=== PATIENT | female | born 1980 ===

== ENCOUNTER 2016-09-28 00:14 | Emergency (ER) | payer SELFPAY ==
[~2016-09-28] VITALS: Ht 157.5 cm; Wt 53.5 kg
[2016-09-28 00:30] VITALS: BP 101/65
--- NOTE | 2016-09-28 00:37 | Emergency Room Report ---
History of Present Illness General Chief Complaint: Abdominal Pain Source: Patient Present Illness HPI This is a 36-year-old female with no past history. She presents with chief complaint of abdominal pain. No diarrhea. [place] cold. Has sore throat. One episode of vomiting today. Hasn't eaten much the last 3 days. Pain is 7/10. Cramping and sharp. Diffuse in nature. Allergies: Coded Allergies: No Known Allergies (Unverified , 09/28/16) Patient History Past Medical History: none, see triage record, old chart reviewed Past Surgical History: none Pertinent Family History: none Social History: Denies: smoking Last Menstrual Period: Aug Now: No Immunizations: other Reviewed Nursing Documentation: PMH: Agreed, PSxH: Agreed Nursing Documentation-PMH Past Medical History: No Stated History Review of Systems Constitutional: Reports: sweats, weakness Eye: Denies: blurred vision, eye pain ENT: Denies: ear pain, nose congestion, throat swelling Respiratory: Denies: cough, shortness of breath Cardiovascular: Denies: chest pain, palpitations Gastrointestinal: Reports: abdominal pain, nausea, vomiting, Denies: diarrhea Musculoskeletal: Denies: back pain, joint pain Skin: Denies: rash Neurological: Denies: headache, numbness Endocrine: Denies: increased thirst, increased urine Hematologic/Lymphatic: Denies: easy bruising All Other Systems: negative except mentioned in HPI Physical Exam Vital Signs Date Time Temp Pulse Resp B/P Pulse Ox O2 Delivery O2 Flow Rate FiO2 09/28/16 00:17 99.0 111 20 98/62 97 Room Air vitals with tachycardia Sp02 EP Interpretation: reviewed, normal General Appearance: well appearing, no apparent distress, alert Head: normocephalic, atraumatic Eyes: bilateral eye EOMI, bilateral eye PERRL ENT: hearing grossly normal, normal pharynx Neck: full range of motion, supple, no meningismus Respiratory: chest non-tender, lungs clear, normal breath sounds Cardiovascular #1: regular rate, rhythm, no murmur Gastrointestinal: normal bowel sounds, no mass, no organomegaly, no bruit, non- distended, tenderness - Right flank Musculoskeletal: back normal, gait/station normal, normal range of motion Neurologic: alert, oriented x3 Psychiatric: mood/affect normal Skin: warm/dry Medical Decision Making Diagnostic Impression: Primary Impression: Abdominal pain Qualified Codes: R10.84 - Generalized abdominal pain Additional Impression: UTI (urinary tract infection) Qualified Codes: N30.00 - Acute cystitis without hematuria ER Course Patient presents with abdominal pain. On recheck she felt better now. I order a CT scan but she does not want to wait around for her. She may have her urine tract infection. We'll put on antibiotics. Labs unremarkable. Again patient felt better doesn't want to stay. Lab Results Impression labs unremarkable Last Vital Signs Date Time Temp Pulse Resp B/P Pulse Ox O2 Delivery O2 Flow Rate FiO2 09/28/16 00:17 99.0 111 20 98/62 97 Room Air Status: improved Disposition: HOME, SELF-CARE Condition: Stable Scripts Nitrofurantoin Monohyd/M-Cryst (Nitrofurantoin Dimmit-Mcr 100 mg) 100 Mg Capsule 100 MG ORAL Q12H, #14 CAP Prov: NICOLE DICKERSON M.D. 09/28/16 Patient Instructions: Abdominal Pain, Adult Additional Instructions: Followup with your DrCindy in 2-3 days. Return if worse. NICOLE DICKERSON M.D. Sep 28, 2016 00:37
[2016-09-28] MEDS ORDERED: Ketorolac 30mg Inj IV ONE (00:45)
[2016-09-28 01:12] LABS: BASOPHILS % (AUTO) 1.1 % (0.0-2.0); EOSINOPHILS % (AUTO) 0.3 % (0.0-3.0); LYMPHOCYTES % (AUTO) 16.8 % (20.0-45.0); MEAN CORPUSCULAR HEMOGLOBIN 29.1 PG (27.0-31.0); MEAN CORPUSCULAR HGB CONC 34.1 G/DL (32.0-36.0); MEAN CORPUSCULAR VOLUME 85 FL (80-99); MEAN PLATELET VOLUME 7.7 FL (6.5-10.1); NEUTROPHILS % (AUTO) 70.9 % (45.0-75.0); PLATELET COUNT 269 K/UL (150-450); RED BLOOD COUNT 4.44 M/UL (4.20-5.40); RED CELL DISTRIBUTION WIDTH 11.1 % (11.6-14.8); WHITE BLOOD COUNT 7.8 K/UL (4.8-10.8)
[2016-09-28 01:31] LABS: ALANINE AMINOTRANSFERASE 25 U/L (3-33); APPEARANCE,URINE CLEAR; CALCIUM 9.4 mg/dL (8.6-10.2); CHLORIDE 97 mEQ/L (98-107); LIPASE 37 U/L (< 60); POTASSIUM 3.9 mEQ/L (3.4-4.9); SODIUM 138 mEQ/L (135-145)
[2016-09-28 01:32] LABS: KETONES,URINE 4+ (NEGATIVE); PROTEIN,URINE 1+ (NEGATIVE)
[2016-09-28 01:33] LABS: LEUKOCYTE ESTERASE ,URINE 1+ (NEGATIVE); NITRITE,URINE NEGATIVE (NEGATIVE); UROBILINOGEN,URINE NORMAL MG/DL (0.0-1.0)
[2016-09-28 01:34] LABS: BACTERIA,URINE FEW /HPF; RBC,URINE 20-30 /HPF (0 - 2); SQUAMOUS EPITHELIAL CELL,UR MANY /LPF (NONE/OCC); YEAST,URINE FEW /HPF
[2016-09-28 02:00] VITALS: BP 110/70
[2016-09-28 02:00] LABS: ANION GAP 19 (5-15); ASPARTATE AMINO TRANSFERASE 49 U/L (5-40); CARBON DIOXIDE 22 mEQ/L (20-30); CREATININE 0.6 mg/dL (0.5-0.9); GLOMERULAR FILTRATION RATE > 60 mL/min (>60)
[2016-09-28 02:01] LABS: ALBUMIN/GLOBULIN RATIO 1.2 (1.0-2.7); TOTAL PROTEIN 7.5 g/dL (6.6-8.7)
[2016-09-28] MEDS ORDERED: MACROBID100 MG ORAL (02:02)
== END 2016-09-28 02:00 | disposition home or self-care (01) ==
LOC: EMR 00:51
DX: R10.84 Generalized abdominal pain (principal); N30.00 Acute cystitis without hematuria; R11.2 Nausea with vomiting, unspecified
CPT/HCPCS: 36415; 80053; 81003; 81025; 83690; 85025; 87086; 96361; 96374; 96375; 99284; J1885; J2405